=== PATIENT | female | born 2000 | race Caucasian/White ===

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

== ENCOUNTER 2021-03-29 10:35 | Emergency (ER) | payer OTHER ==
[~2021-03-29] VITALS: Ht 175.2 cm; Wt 54.4 kg
[2021-03-29 11:10] LABS: HEMATOCRIT 38.1 % (37.0-47.0); MEAN CELL VOLUME 86.4 fl (81.0-99.0); MEAN CORPUSCULAR HGB 28.1 pg (27.0-31.0); MEAN CORPUSCULAR HGB CONC 32.5 g/dl (33.0-37.0); MEAN PLATELET VOLUME 11.4 fl (9.6-12.3); PLATELET COUNT AUTOMATED 227 10*3/uL (130-400); RED BLOOD COUNT 4.41 10*6/uL (4.10-5.10); WHITE BLOOD COUNT 23.5 10*3/uL (4.8-10.8)
[2021-03-29 11:27] LABS: PLATELET SUFFICIENCY NORMAL (NORMAL); TOTAL CELLS COUNTED 100 #CELLS
[2021-03-29 11:28] LABS: ALBUMIN 3.9 gm/dl (3.1-4.5); ALKALINE PHOSPHATASE 56 U/L (45-117); BUN 12 mg/dl (7-24); CHLORIDE 104 mmol/L (98-107); CPK 38 U/L (26-192); CREATININE 0.65 mg/dL (0.55-1.02); LIPASE 74 U/L (73-393); POTASSIUM 3.4 mmol/L (3.5-5.1); SGOT/AST 11 IU/L (3-35); SGPT/ALT 18 U/L (12-78); SODIUM 137 mmol/L (136-145); TOTAL PROTEIN 7.8 gm/dL (6.4-8.2); VACUOLATION OF NEUTROPHILS SLIGHT
[2021-03-29] MEDS ORDERED: REGLAN10 M1 PO (15:07)
[2021-03-29] MEDS ORDERED: NAPROXEN250 MG PO (15:07)
[2021-03-29] MEDS ORDERED: TYLENOL325 M1 PO (15:07)
[2021-03-29 16:09] LABS: BILIRUBIN Negative (Negative); BLOOD Negative (Negative); CLARITY Clear (Clear); COLOR Dark Yellow (Yellow); GLUCOSE Negative (Negative); KETONE 4+ (Negative); LEUKO ESTERASE Trace (Negative); NITRITE Negative (Negative); SPECIFIC GRAVITY >= 1.030 (1.001-1.030)
[2021-03-29 16:22] LABS: BACTERIA TRACE; MUCOUS TRACE; RBC 0-2 rbc/hpf (0-2)
== END 2021-03-29 15:49 | disposition home or self-care (01) ==
LOC: ED 10:35
PROVIDERS: Emergency Medicine
DX: J02.8 Acute pharyngitis due to other specified organisms (principal); Z20.822 Contact with and (suspected) exposure to COVID-19

== ENCOUNTER 2021-05-18 04:36 | Emergency (ER) | payer OTHER ==
[~2021-05-18] VITALS: Ht 167.6 cm; Wt 54.4 kg
[~2021-05-18 04:36] MED LIST changes: +NAPROXEN250 MG PO; +REGLAN10 M1 PO
== END 2021-05-18 06:20 | disposition left against medical advice (07) ==
LOC: ED 04:36
DX: K08.89 Other specified disorders of teeth and supporting structures (principal); Z53.21 Procedure and treatment not carried out due to patient leaving prior to being seen by health care provider

== ENCOUNTER 2021-07-31 00:50 | Emergency (ER) | payer OTHER ==
[~2021-07-31] VITALS: Ht 170.1 cm; Wt 49.9 kg
[2021-07-31] MEDS ORDERED: KETOROLAC10 MG PO (02:11)
[2021-07-31] MEDS ORDERED: AMOXICILLIN875 MG PO (02:14)
== END 2021-07-31 02:23 | disposition home or self-care (01) ==
LOC: ED 00:50
DX: K08.89 Other specified disorders of teeth and supporting structures (principal)

== ENCOUNTER 2021-08-10 10:06 | Emergency (ER) | payer OTHER ==
[~2021-08-10 10:06] MED LIST changes: +AMOXICILLIN875 MG PO; +KETOROLAC10 MG PO
[2021-08-10] MEDS ORDERED: PRENATAL VITAM1 EAC4 PO (10:58)
[2021-08-10] MEDS ORDERED: UNISOM25 M1 PO (16:14)
[2021-08-10] MEDS ORDERED: VITAMIN B-625 M1 PO (16:14)
== END 2021-08-10 12:00 | disposition home or self-care (01) ==
LOC: ED 10:06
DX: Z32.01 Encounter for pregnancy test, result positive (principal)

== ENCOUNTER 2021-09-07 05:54 | Emergency (ER) | payer OTHER ==
[~2021-09-07] VITALS: Ht 170.1 cm; Wt 51.3 kg
[~2021-09-07 05:54] MED LIST changes: +PRENATAL VITAM1 EAC4 PO; +UNISOM25 M1 PO; +VITAMIN B-625 M1 PO
[2021-09-07 06:40] LABS: BASO % 0.3 % (0.0-1.0); EOS # 0.1 10*3/uL (0.0-0.4); EOS % 0.6 % (1.0-4.0); HEMATOCRIT 40.3 % (37.0-47.0); LYMPH # 0.6 10*3/uL (1.3-4.4); LYMPH % 4.8 % (27.0-41.0); MEAN CELL VOLUME 85.6 fl (81.0-99.0); MEAN CORPUSCULAR HGB 28.5 pg (27.0-31.0); MEAN CORPUSCULAR HGB CONC 33.3 g/dl (33.0-37.0); MEAN PLATELET VOLUME 10.8 fl (9.6-12.3); MONO # 1.4 10*3/uL (0.1-1.0); MONO % 12.2 % (3.0-9.0); NEUT # 9.4 10*3/uL (2.3-7.9); NEUT % 81.9 % (47.0-73.0); PLATELET COUNT AUTOMATED 253 10*3/uL (130-400); RED BLOOD COUNT 4.71 10*6/uL (4.10-5.10); RED CELL DISTRI WIDTH 12.9 % (0-14.5); WHITE BLOOD COUNT 11.5 10*3/uL (4.8-10.8)
[2021-09-07 06:55] LABS: ALKALINE PHOSPHATASE 50 U/L (45-117); BUN 11 mg/dl (7-24); CHLORIDE 104 mmol/L (98-107); CREATININE 0.59 mg/dL (0.55-1.02); POTASSIUM 3.8 mmol/L (3.5-5.1); SGOT/AST 11 IU/L (3-35); SGPT/ALT 19 U/L (12-78); SODIUM 136 mmol/L (136-145)
== END 2021-09-07 09:54 | disposition home or self-care (01) ==
LOC: ED 05:54
PROVIDERS: Emergency Medicine
DX: O21.0 Mild hyperemesis gravidarum (principal); Z3A.10 10 weeks gestation of pregnancy

== ENCOUNTER 2021-10-05 20:11 | Emergency (ER) | payer OTHER ==
[~2021-10-05] VITALS: Wt 56.7 kg
[2021-10-05] MEDS ORDERED: ACETAMINOPHEN500 M4 PO (20:20)
[2021-10-05] MEDS ORDERED: [UNRECOGNIZED DRUG - OTHER] PO (20:49)
== END 2021-10-05 20:42 | disposition home or self-care (01) ==
LOC: ED 20:11
DX: L50.9 Urticaria, unspecified (principal)

== ENCOUNTER 2022-01-20 07:28 | Emergency (ER) | payer OTHER ==
[~2022-01-20 07:28] MED LIST changes: +ACETAMINOPHEN500 M4 PO; +[UNRECOGNIZED DRUG - OTHER] PO
[2022-01-20 08:07] LABS: BASO % 0.4 % (0.0-1.0); EOS # 0.5 10*3/uL (0.0-0.4); HEMATOCRIT 34.9 % (37.0-47.0); LYMPH # 1.6 10*3/uL (1.3-4.4); MEAN CELL VOLUME 84.1 fl (81.0-99.0); MEAN CORPUSCULAR HGB 27.5 pg (27.0-31.0); MEAN CORPUSCULAR HGB CONC 32.7 g/dl (33.0-37.0); MEAN PLATELET VOLUME 11.8 fl (9.6-12.3); MONO % 9.1 % (3.0-9.0); NEUT # 8.2 10*3/uL (2.3-7.9); NEUT % 72.1 % (47.0-73.0); PLATELET COUNT AUTOMATED 181 10*3/uL (130-400); RED BLOOD COUNT 4.15 10*6/uL (4.10-5.10); RED CELL DISTRI WIDTH 12.7 % (0-14.5); WHITE BLOOD COUNT 11.4 10*3/uL (4.8-10.8)
[2022-01-20 08:16] LABS: BILIRUBIN Negative (Negative); BLOOD Negative (Negative); CLARITY Clear (Clear); COLOR Yellow (Yellow); GLUCOSE Negative (Negative); KETONE Negative (Negative); LEUKO ESTERASE 1+ (Negative); NITRITE Negative (Negative); PH 6.5 (4.5-8.0); UROBILINOGEN 0.2 E.U./dl (0.0-1.0)
[2022-01-20 08:28] LABS: ALKALINE PHOSPHATASE 74 U/L (45-117); BUN 10 mg/dl (7-24); CHLORIDE 108 mmol/L (98-107); CREATININE 0.47 mg/dL (0.55-1.02); LIPASE 136 U/L (73-393); POTASSIUM 4.1 mmol/L (3.5-5.1); SGOT/AST 10 IU/L (3-35); SGPT/ALT 9 U/L (12-78); SODIUM 138 mmol/L (136-145); TOTAL PROTEIN 6.4 gm/dL (6.4-8.2)
[2022-01-20 08:34] LABS: BACTERIA 1+
== END 2022-01-20 09:30 | disposition home or self-care (01) ==
LOC: ED 07:28
PROVIDERS: Emergency Medicine
DX: O26.893 Other specified pregnancy related conditions, third trimester (principal); Z3A.29 29 weeks gestation of pregnancy

== ENCOUNTER 2022-09-19 09:02 | Emergency (ER) | payer OTHER ==
[~2022-09-19] VITALS: Ht 167.6 cm; Wt 49.9 kg
== END 2022-09-19 09:53 | disposition home or self-care (01) ==
LOC: ED 09:02
DX: Z32.01 Encounter for pregnancy test, result positive (principal)

== ENCOUNTER 2022-10-06 06:16 | Emergency (ER) | payer OTHER ==
[~2022-10-06] VITALS: Ht 170.1 cm; Wt 49.9 kg
[2022-10-06 07:03] LABS: BASO % 0.5 % (0.0-1.0); EOS # 0.3 10*3/uL (0.0-0.4); EOS % 4.1 % (1.0-4.0); HEMATOCRIT 40.1 % (37.0-47.0); LYMPH # 1.5 10*3/uL (1.3-4.4); LYMPH % 19.5 % (27.0-41.0); MEAN CELL VOLUME 87.9 fl (81.0-99.0); MEAN CORPUSCULAR HGB 28.5 pg (27.0-31.0); MEAN CORPUSCULAR HGB CONC 32.4 g/dl (33.0-37.0); MONO # 0.7 10*3/uL (0.1-1.0); MONO % 9.7 % (3.0-9.0); NEUT % 65.9 % (47.0-73.0); PLATELET COUNT AUTOMATED 265 10*3/uL (130-400); RED BLOOD COUNT 4.56 10*6/uL (4.10-5.10); RED CELL DISTRI WIDTH 13.1 % (0-14.5); WHITE BLOOD COUNT 7.5 10*3/uL (4.8-10.8)
[2022-10-06 07:20] LABS: ALKALINE PHOSPHATASE 54 U/L (46-116); BUN 9 mg/dl (9-23); CHLORIDE 101 mmol/L (98-107); POTASSIUM 3.5 mmol/L (3.4-5.1); SGPT/ALT 8 U/L (10-49)
[2022-10-06 07:40] LABS: BILIRUBIN Negative (Negative); BLOOD 1+ (Negative); CLARITY Cloudy (Clear); COLOR Dark Yellow (Yellow); GLUCOSE Negative (Negative); KETONE 1+ (Negative); LEUKO ESTERASE 2+ (Negative); NITRITE Positive (Negative); SPECIFIC GRAVITY 1.025 (1.001-1.030)
[2022-10-06 08:18] LABS: WBC 31-40 wbc/hpf (0-5)
[2022-10-06 08:19] LABS: BACTERIA 2+; RBC 21-30 rbc/hpf (0-2)
[2022-10-06] MEDS ORDERED: CEFUROXIME AXE500 MG PO (10:27)
== END 2022-10-06 10:33 | disposition home or self-care (01) ==
LOC: ED 06:16
PROVIDERS: Emergency Medicine
DX: O23.41 Unspecified infection of urinary tract in pregnancy, first trimester (principal); O99.341 Other mental disorders complicating pregnancy, first trimester; N39.0 Urinary tract infection, site not specified; F32.A Depression, unspecified; Z20.822 Contact with and (suspected) exposure to COVID-19; Z3A.01 Less than 8 weeks gestation of pregnancy

== ENCOUNTER 2022-10-07 16:38 | Emergency (ER) | payer OTHER ==
[~2022-10-07] VITALS: Wt 54.4 kg
[2022-10-07 18:29] LABS: BASO # 0.1 10*3/uL (0.0-0.1); BASO % 0.5 % (0.0-1.0); EOS # 0.2 10*3/uL (0.0-0.4); EOS % 1.6 % (1.0-4.0); HEMATOCRIT 35.5 % (37.0-47.0); LYMPH # 1.4 10*3/uL (1.3-4.4); LYMPH % 14.1 % (27.0-41.0); MEAN CORPUSCULAR HGB 28.5 pg (27.0-31.0); MEAN CORPUSCULAR HGB CONC 33.2 g/dl (33.0-37.0); MEAN PLATELET VOLUME 11.5 fl (9.6-12.3); MONO # 0.9 10*3/uL (0.1-1.0); NEUT # 7.5 10*3/uL (2.3-7.9); NEUT % 74.5 % (47.0-73.0); PLATELET COUNT AUTOMATED 240 10*3/uL (130-400); RED BLOOD COUNT 4.14 10*6/uL (4.10-5.10); RED CELL DISTRI WIDTH 12.9 % (0-14.5)
[2022-10-07 18:30] LABS: MEAN CELL VOLUME 85.7 fl (81.0-99.0)
[2022-10-07 19:22] LABS: ALKALINE PHOSPHATASE 49 U/L (46-116); BUN 8 mg/dl (9-23); CHLORIDE 102 mmol/L (98-107); LIPASE 31 U/L (12-53); POTASSIUM 3.3 mmol/L (3.4-5.1); SGPT/ALT 8 U/L (10-49); TOTAL PROTEIN 6.8 gm/dL (6.0-8.0)
== END 2022-10-07 20:20 | disposition home or self-care (01) ==
LOC: ED 16:38
PROVIDERS: Physician Assistant
DX: O21.0 Mild hyperemesis gravidarum (principal); Z3A.01 Less than 8 weeks gestation of pregnancy

== ENCOUNTER 2022-11-30 06:54 | Emergency (ER) | payer OTHER ==
[~2022-11-30] VITALS: Ht 170.1 cm; Wt 54.4 kg
[2022-11-30] MEDS ORDERED: ZITHROMAX250 MG PO (07:27)
[2022-11-30] MEDS ORDERED: FLONASE ALLERG9.9 ML NAS (07:27)
[2022-11-30] MEDS ORDERED: IBUPROFEN600 MG PO (07:27)
== END 2022-11-30 07:33 | disposition home or self-care (01) ==
LOC: ED 06:54
DX: J06.9 Acute upper respiratory infection, unspecified (principal); Z98.890 Other specified postprocedural states; F32.A Depression, unspecified

== ENCOUNTER 2023-02-07 17:56 | Emergency (ER) | payer OTHER ==
[~2023-02-07] VITALS: Ht 167.6 cm; Wt 54.4 kg
[~2023-02-07 17:56] MED LIST changes: +FLONASE ALLERG9.9 ML NAS
[2023-02-07] MEDS ORDERED: PREDNISONE20 M1 PO (18:18)
== END 2023-02-07 19:16 | disposition home or self-care (01) ==
LOC: ED 17:56
DX: L25.9 Unspecified contact dermatitis, unspecified cause (principal); F32.A Depression, unspecified

== ENCOUNTER 2023-02-16 18:48 | Emergency (ER) | payer OTHER ==
[~2023-02-16] VITALS: Ht 167.6 cm; Wt 56.7 kg
[~2023-02-16 18:48] MED LIST changes: +PREDNISONE20 M1 PO
[2023-02-16] MEDS ORDERED: AMOX-CLAV 875-1 EACH PO (22:13)
== END 2023-02-16 22:34 | disposition home or self-care (01) ==
LOC: ED 18:48
DX: S71.132A Puncture wound without foreign body, left thigh, initial encounter (principal); W54.0XXA Bitten by dog, initial encounter; Y93.89 Activity, other specified; Y92.89 Other specified places as the place of occurrence of the external cause; Y99.8 Other external cause status

== ENCOUNTER 2023-12-12 07:41 | Emergency (ER) | payer OTHER ==
[~2023-12-12] VITALS: Ht 170.1 cm; Wt 53.5 kg
[~2023-12-12 07:41] MED LIST changes: +AMOX-CLAV 875-1 EACH PO
[2023-12-12] MEDS ORDERED: Metoclopramide Hydrochloride 10 MG/2 ML AMP IV ONE (07:55)
[2023-12-12] MEDS ORDERED: SODIUM CHLORIDE 0.9% 1,000 ML IV ONE (07:55)
[2023-12-12] MEDS ORDERED: diphenhydrAMINE hydrochloride 50 MG/ML VIAL IV ONE (07:55)
[2023-12-12 08:08] LABS: LYMPH # 0.8 10*3/uL (1.3-4.4); LYMPH % 10.4 % (27.0-41.0); MEAN CELL VOLUME 86.9 fl (81.0-99.0); MEAN PLATELET VOLUME 11.6 fl (9.6-12.3)
[2023-12-12 08:14] LABS: BASO % 0.4 % (0.0-1.0); EOS # 0.1 10*3/uL (0.0-0.4); EOS % 1.4 % (1.0-4.0); HEMATOCRIT 42.4 % (37.0-47.0); MEAN CORPUSCULAR HGB 28.5 pg (27.0-31.0); MEAN CORPUSCULAR HGB CONC 32.8 g/dl (33.0-37.0); MONO # 0.6 10*3/uL (0.1-1.0); MONO % 7.8 % (3.0-9.0); NEUT # 6.5 10*3/uL (2.3-7.9); NEUT % 79.8 % (47.0-73.0); PLATELET COUNT AUTOMATED 210 10*3/uL (130-400); RED BLOOD COUNT 4.88 10*6/uL (4.10-5.10); RED CELL DISTRI WIDTH 13.4 % (0-14.5); WHITE BLOOD COUNT 8.1 10*3/uL (4.8-10.8)
[2023-12-12 08:28] LABS: ALKALINE PHOSPHATASE 51 U/L (46-116); BUN 12 mg/dl (9-23); CHLORIDE 104 mmol/L (98-107); LIPASE 45 U/L (12-53); POTASSIUM 3.4 mmol/L (3.4-5.1); SGPT/ALT 16 U/L (5-49); TOTAL PROTEIN 7.3 gm/dL (6.0-8.0)
[2023-12-12 08:29] LABS: ETHYL ALCOHOL < 3.0 mg/dl (<3)
[2023-12-12 08:45] LABS: URINE AMPHETAMINES Negative (1000ng/ml); URINE BARBITURATES Negative (200ng/ml); URINE BENZODIAZEPINES Negative (200ng/ml); URINE CANNABINOIDS (THC) Positive (50ng/ml); URINE COCAINE Negative (300ng/ml); URINE METHADONE Negative (300ng/ml); URINE OPIATES Negative (300ng/ml); URINE PHENCYCLIDINE Negative (25ng/ml)
[2023-12-12 08:48] LABS: BILIRUBIN 2+ (Negative); BLOOD Negative (Negative); CLARITY Cloudy (Clear); COLOR Dark Yellow (Yellow); GLUCOSE Negative (Negative); KETONE 1+ (Negative); LEUKO ESTERASE Trace (Negative); NITRITE Negative (Negative); SPECIFIC GRAVITY >= 1.030 (1.001-1.030)
[2023-12-12 09:01] LABS: BACTERIA 3+; EPITHELIAL CELLS 31-40; MUCOUS 3+
[2023-12-12] MEDS ORDERED: CIPRO500 MG PO (09:10)
[2023-12-12] MEDS ORDERED: ONDANSETRON4 MG SL (09:10)
== END 2023-12-12 09:17 | disposition home or self-care (01) ==
LOC: ED 07:41
PROVIDERS: Internal Medicine
DX: N39.0 Urinary tract infection, site not specified (principal); R11.2 Nausea with vomiting, unspecified; R19.7 Diarrhea, unspecified; F32.A Depression, unspecified; Z98.890 Other specified postprocedural states; Z87.891 Personal history of nicotine dependence

== ENCOUNTER 2024-02-19 18:20 | Emergency (ER) | payer OTHER ==
[~2024-02-19] VITALS: Ht 167.6 cm; Wt 54.4 kg
[~2024-02-19 18:20] MED LIST changes: +CIPRO500 MG PO; +ONDANSETRON4 MG SL
[2024-02-19 18:52] LABS: BILIRUBIN Negative (Negative); BLOOD 3+ (Negative); CLARITY Clear (Clear); COLOR Yellow (Yellow); GLUCOSE Negative (Negative); KETONE Negative (Negative); LEUKO ESTERASE Trace (Negative); NITRITE Negative (Negative); SPECIFIC GRAVITY <= 1.005 (1.001-1.030); UROBILINOGEN 0.2 E.U./dl (0.0-1.0)
[2024-02-19 18:55] LABS: HEMATOCRIT 36.8 % (37.0-47.0); MEAN CORPUSCULAR HGB 28.4 pg (27.0-31.0); MEAN CORPUSCULAR HGB CONC 32.6 g/dl (33.0-37.0); MEAN PLATELET VOLUME 10.6 fl (9.6-12.3); PLATELET COUNT AUTOMATED 328 10*3/uL (130-400); RED BLOOD COUNT 4.23 10*6/uL (4.10-5.10); RED CELL DISTRI WIDTH 12.7 % (0-14.5); WHITE BLOOD COUNT 11.4 10*3/uL (4.8-10.8)
[2024-02-19 18:57] LABS: MANUAL DIFF REFLEX YES
[2024-02-19 19:09] LABS: BACTERIA 1+; RBC 51-100 rbc/hpf (0-2)
[2024-02-19 19:18] LABS: BASOPHILS 1 % (0-1); PLATELET SUFFICIENCY NORMAL (NORMAL); TOTAL CELLS COUNTED 100 #CELLS
[2024-02-19 19:19] LABS: OVALOCYTES FEW
[2024-02-19 19:30] LABS: BUN 7 mg/dl (9-23); CHLORIDE 107 mmol/L (98-107); POTASSIUM 3.4 mmol/L (3.4-5.1)
== END 2024-02-19 19:51 | disposition home or self-care (01) ==
LOC: ED 18:20
PROVIDERS: Physician Assistant Medical
DX: O03.9 Complete or unspecified spontaneous abortion without complication (principal); F32.A Depression, unspecified

== ENCOUNTER 2024-03-09 08:19 | Emergency (ER) | payer OTHER ==
[~2024-03-09] VITALS: Ht 167.6 cm; Wt 48.1 kg
== END 2024-03-09 11:26 | disposition home or self-care (01) ==
LOC: ED 08:19
DX: J06.9 Acute upper respiratory infection, unspecified (principal); Z20.822 Contact with and (suspected) exposure to COVID-19; F32.A Depression, unspecified

== ENCOUNTER 2024-05-24 12:11 | Emergency (ER) | payer OTHER ==
[~2024-05-24] VITALS: Ht 167.6 cm; Wt 47.8 kg
[2024-05-24] MEDS ORDERED: Bacitracin Zinc 14 GM TUBE T ONE (13:00)
[2024-05-24] MEDS ORDERED: NAPROSYN500 MG PO (14:43)
== END 2024-05-24 14:55 | disposition home or self-care (01) ==
LOC: ED 12:11
DX: S80.02XA Contusion of left knee, initial encounter (principal); S50.812A Abrasion of left forearm, initial encounter; F32.A Depression, unspecified; W10.9XXA Fall (on) (from) unspecified stairs and steps, initial encounter; Y93.89 Activity, other specified; Y92.89 Other specified places as the place of occurrence of the external cause; Y99.8 Other external cause status

== ENCOUNTER 2024-07-21 10:15 | Emergency (ER) | payer OTHER ==
[~2024-07-21] VITALS: Ht 167.6 cm; Wt 49.9 kg
[2024-07-21] MEDS ORDERED: IBUPROFEN 800 MG TAB PO ONE (10:40)
[2024-07-21] MEDS ORDERED: MELOXICAM15 MG PO (10:42)
== END 2024-07-21 10:53 | disposition home or self-care (01) ==
LOC: ED 10:15
DX: S63.610A Unspecified sprain of right index finger, initial encounter (principal); F32.A Depression, unspecified; W20.8XXA Other cause of strike by thrown, projected or falling object, initial encounter; Y93.89 Activity, other specified; Y92.89 Other specified places as the place of occurrence of the external cause; Y99.0 Civilian activity done for income or pay

== ENCOUNTER 2025-02-25 09:23 | Emergency (ER) | payer OTHER ==
[~2025-02-25] VITALS: Ht 170.1 cm; Wt 49.9 kg
[~2025-02-25 09:23] MED LIST changes: +MELOXICAM15 MG PO
[2025-02-25] MEDS ORDERED: FAMOTIDINE 20 MG TAB PO ONE (09:45)
[2025-02-25] MEDS ORDERED: Dexamethasone Sodium Phospha 20 MG/5 ML VIAL IM ONE (09:45)
[2025-02-25] MEDS ORDERED: PREDNISONE50 MG PO (09:46)
[2025-02-25] MEDS ORDERED: HYDROXYZINE HCL25 MG PO (09:46)
== END 2025-02-25 09:47 | disposition home or self-care (01) ==
LOC: ED 09:23
DX: L23.7 Allergic contact dermatitis due to plants, except food (principal)